=== PATIENT | female | born 1975 | race American Indian/Alaskan Native ===

== ENCOUNTER 2017-02-26 13:47 | Emergency (ER) | payer SELFPAY ==
[2017-02-26 14:45] VITALS: BP 152/100
[2017-02-26 15:14] LABS: Basophils % (Auto) 0.4 % (0.0-1.8); Eosinophils % (Auto) 2.5 % (0.0-4.3); Hematocrit 29.4 % (30.3-42.9); Hemoglobin 9.5 gm/dl (10.1-14.3); Mean Corpuscular HGB Conc 32 % (30-34); Mean Corpuscular Hemoglobin 26 pg (28-32); Mean Corpuscular Volume 81 fl (79-97); Platelet Count 263 K/mm3 (140-440); Red Blood Count 3.64 M/mm3 (3.65-5.03); Red Cell Distribution Width 17.6 % (13.2-15.2)
[2017-02-26 15:19] LABS: Anion Gap 17 mmol/L; Blood Urea Nitrogen 7 mg/dL (7-17); Calcium 8.8 mg/dL (8.4-10.2); Carbon Dioxide 25 mmol/L (22-30); Chloride 103.8 mmol/L (98-107); Glucose 87 mg/dL (65-100); Potassium 3.7 mmol/L (3.6-5.0); Sodium 142 mmol/L (137-145)
--- NOTE | 2017-02-28 01:28 | ED Elopement Review ---
ED Pt Elopement review - Results review Lab results: Laboratory Tests 02/26/17 02/26/17 14:51 14:51 WBC 6.0 RBC 3.64 L Hgb 9.5 L Hct 29.4 L MCV 81 MCH 26 L MCHC 32 RDW 17.6 H Plt Count 263 Lymph % (Auto) 23.6 [place] % (Auto) 8.7 H Eos % (Auto) 2.5 Baso % (Auto) 0.4 Lymph # 1.4 [place] # 0.5 Eos # 0.1 Baso # 0.0 Seg Neutrophils % 64.8 Seg Neutrophils # 3.9 Sodium 142 Potassium 3.7 Chloride 103.8 Carbon Dioxide 25 Anion Gap 17 BUN 7 Creatinine 0.7 Estimated GFR > 60 BUN/Creatinine Ratio 10.00 Glucose 87 Calcium 8.8 - Call Back decision Pt Call Back Decision: No action required
== END 2017-02-26 18:00 | disposition left against medical advice (07) ==
LOC: ED 13:47
DX: M79.672 Pain in left foot (principal); M79.671 Pain in right foot; Z53.21 Procedure and treatment not carried out due to patient leaving prior to being seen by health care provider
CPT/HCPCS: 36415; 80048; 85025; 93005; 93010